=== PATIENT | male | born 1990 | race Caucasian/White ===

== ENCOUNTER 2017-10-23 10:16 | Emergency (ER) | payer SELFPAY ==
[~2017-10-23] VITALS: Wt 77.5 kg
[~2017-10-23 10:16] MED LIST: ANTIVERT 25MG25 MG PO; NO HOME MEDICATIONS; PROMETHAZINE12.5 M5 PO; ZOFRAN 4MG T4 MG/TAB PO
[2017-10-23 10:19] VITALS: BP 112/72; PULSE 81; TEMP 99.2
[2017-10-23] MEDS ORDERED: CEPHALEXIN500 M1 PO (11:22)
[2017-10-23] MEDS ORDERED: CORTISPORIN OTI10 ML OT (11:22)
== END 2017-10-23 11:47 | disposition home or self-care (01) ==
LOC: COL.ER 10:16
DX: H92.02 Otalgia, left ear (principal)